=== PATIENT | female | born 1990 | race Two or more races ===

== ENCOUNTER 2024-01-31 23:59 | Inpatient (IN) | payer MEDICAID ==
[~2024-01-31] VITALS: Ht 162.6 cm; Wt 73.0 kg
[2024-02-01 00:52] LABS: BASOPHILS % (AUTO) 1.2 % (0.0-2.0); EOSINOPHILS % (AUTO) 1.6 % (1.0-6.0); HEMATOCRIT 40.9 % (36-46); HEMOGLOBIN 13.4 g/dL (12.0-16.0); LYMPHOCYTES # (AUTO) 2.6 K/uL (1.0-4.8); LYMPHOCYTES % (AUTO) 48.1 % (22.0-44.0); MEAN CORPUSCULAR HGB CONC 32.8 G/dL (31.0-37.0); MEAN CORPUSCULAR VOLUME 92 fL (80-100); MONOCYTES # (AUTO) 0.5 K/uL (0.1-1.0); MONOCYTES % (AUTO) 8.3 % (2.0-9.0); NEUTROPHILS # (AUTO) 2.2 K/uL (1.8-7.7); NEUTROPHILS % (AUTO) 40.8 % (40.0-70.0); PLATELET COUNT (AUTO) 357 K/uL (150-450); RED BLOOD CELL COUNT(AUTO) 4.47 MIL/uL (4.00-5.20); RED CELL DISTRIBUTION WIDTH 18.5 % (11.5-14.5); WHITE BLOOD COUNT (AUTO) 5.5 K/uL (4.5-11.0)
[2024-02-01 00:54] LABS: ANION GAP 10 mmol/L (8-16); CALCIUM, TOTAL 8.4 mg/dL (8.8-10.5); CARBON DIOXIDE 28 mmol/L (22-29); CHLORIDE 105 mmol/L (98-107); CREATININE 0.76 mg/dL (0.60-1.30); GLOMERULAR FILTR. RATE CALC > 60 mL/min (>60); GLUCOSE,RANDOM 95 mg/dL (70-110); POTASSIUM 3.9 mmol/L (3.5-5.1); SODIUM SERUM 143 mmol/L (136-145); UREA NITROGEN, BLOOD 13 mg/dL (7-18)
[2024-02-01 00:55] LABS: ALCOHOL, BLOOD (SERUM) 267 mg/dL (0-10)
[2024-02-01 01:21] LABS: PH,URINE DRUG SCREEN 5.5 (5.0-8.0)
[2024-02-01 01:41] LABS: METHADONE SCREEN, URINE NEGATIVE (NEGATIVE)
[2024-02-01 01:57] LABS: ALCOHOL, URINE DRUG SCREEN POSITIVE (NEGATIVE); AMPHET/METH SCREEN,URINE POSITIVE (NEGATIVE); BARBITURATE SCREEN, URINE NEGATIVE (NEGATIVE); BENZODIAZEPINES SCREEN,URINE NEGATIVE (NEGATIVE); CANNABINOID SCREEN,URINE POSITIVE (NEGATIVE); COCAINE SCREEN,URINE NEGATIVE (NEGATIVE); OPIATE SCREEN,URINE NEGATIVE (NEGATIVE); PHENCYCLIDINE SCREEN,URINE NEGATIVE (NEGATIVE)
[2024-02-01 04:36] LABS: COVID AG,FIA SOURCE NASAL SWAB
[2024-02-01 04:39] LABS: SARS-COV2 (COVID) ANTIGEN,FIA Negative (Negative)
[2024-02-01] MEDS ORDERED: ZOLPIDEM TARTRATE 10 MG TABLET PO PRN (09:45)
[2024-02-01 12:10] LABS: APPEARANCE,URINE TURBID (CLEAR); BILIRUBIN,URINE NEGATIVE (NEGATIVE); COLOR,URINE YELLOW (YELLOW); GLUCOSE, URINE (UA) NEGATIVE (NEGATIVE); KETONES,URINE NEGATIVE (NEGATIVE); LEUKOCYTE ESTERASE ,URINE NEGATIVE (NEGATIVE); NITRATE,URINE NEGATIVE (NEGATIVE); OCCULT BLOOD,URINE NEGATIVE (NEGATIVE); PH,URINE 5.5 (5.0-8.0); PROTEIN,URINE NEGATIVE (NEGATIVE); SPECIFIC GRAVITIY, URINE 1.012 (1.003-1.030); UROBILINOGEN,URINE <=1.0 mg/dL (<=1.0)
[2024-02-01] MEDS: LORazepam 2 MG TABLET PO PRN (16:15)
[2024-02-01] MEDS: QUEtiapine FUMARATE 100 MG TABLET PO PRN (16:15)
[2024-02-02] MEDS ORDERED: MIRT-92 PO (09:04)
[2024-02-02] MEDS ORDERED: LISD70CA PO (09:04)
[2024-02-02 10:22] VITALS: BP 126/80; PULSE 118; RESP 16; TEMP 96.6; O2SAT 98
[2024-02-02] MEDS: MIRTAZAPINE 30 MG TABLET PO SCH (12:29)
[2024-02-02] MEDS ORDERED: ALBUTEROL SULFATE HFA 90 MCG/PUFF 8 GM INHALER IH PRN (14:00)
[2024-02-02] MEDS ORDERED: PETROLATUM,WHITE 28 GM JELLY TP PRN (14:00)
[2024-02-02] MEDS ORDERED: ONDANSETRON HCL 4 MG TABLET PO PRN (14:00)
[2024-02-02] MEDS ORDERED: ACETAMINOPHEN 325 MG TABLET PO PRN (14:00)
[2024-02-02] MEDS ORDERED: LOPERAMIDE HCL 2 MG CAPSULE PO PRN (14:00)
[2024-02-02] MEDS ORDERED: IBUPROFEN 400 MG TABLET PO PRN (14:00)
[2024-02-02] MEDS ORDERED: MAG HYDROX/ALUMINUM HYD/SIMETH ES 30 ML SUSPENSION UDCUP PO PRN (14:00)
[2024-02-02] MEDS ORDERED: GuaiFENesin/D-METHORPHAN [SUGAR-FREE] 200-20MG/10 ML SYRUP UDCUP PO PRN (14:00)
[2024-02-02] MEDS ORDERED: DOCUSATE SODIUM 100 MG CAPSULE PO PRN (14:00)
[2024-02-02] MEDS ORDERED: MAGNESIUM HYDROXIDE SUSPENSION 30 ML UDCUP PO PRN (14:00)
[2024-02-02] MEDS ORDERED: CloNIDine HCL 0.1 MG TABLET PO PRN (14:00)
[2024-02-02 20:41] VITALS: PULSE 112
[2024-02-02 20:49] VITALS: PULSE 92
[2024-02-02 21:03] VITALS: BP 111/72; PULSE 92; RESP 16; TEMP 97.8; O2SAT 99
[2024-02-02] MEDS: NICOTINE 14 MG/24 HOUR PATCH TD PRN (21:26)
[2024-02-03 08:15] VITALS: BP 124/77; PULSE 91; RESP 17; TEMP 97.5; O2SAT 100
[2024-02-03 09:05] LABS: HEMOGLOBIN A1C 5.1 % (3.8-5.6)
[2024-02-03 09:19] LABS: THYROID STIMULATING HORMONE 4.49 uIU/mL (0.36-3.74)
[2024-02-03] MEDS ORDERED: ONDANSETRON HCL 4 MG TABLET PO PRN (10:00)
[2024-02-03] MEDS ORDERED: ACETAMINOPHEN 325 MG TABLET PO PRN (10:00)
[2024-02-03] MEDS ORDERED: CloNIDine HCL 0.1 MG TABLET PO PRN (10:00)
[2024-02-03] MEDS ORDERED: MAGNESIUM HYDROXIDE SUSPENSION 30 ML UDCUP PO PRN (10:00)
[2024-02-03] MEDS ORDERED: DOCUSATE SODIUM 100 MG CAPSULE PO PRN (10:00)
[2024-02-03] MEDS ORDERED: ALBUTEROL SULFATE HFA 90 MCG/PUFF 8 GM INHALER IH PRN (10:00)
[2024-02-03] MEDS ORDERED: IBUPROFEN 400 MG TABLET PO PRN (10:00)
[2024-02-03] MEDS ORDERED: PETROLATUM,WHITE 28 GM JELLY TP PRN (10:00)
[2024-02-03] MEDS ORDERED: LOPERAMIDE HCL 2 MG CAPSULE PO PRN (10:00)
[2024-02-03] MEDS ORDERED: MAG HYDROX/ALUMINUM HYD/SIMETH ES 30 ML SUSPENSION UDCUP PO PRN (10:00)
[2024-02-03] MEDS ORDERED: GuaiFENesin/D-METHORPHAN [SUGAR-FREE] 200-20MG/10 ML SYRUP UDCUP PO PRN (10:00)
[2024-02-03] MEDS: NICOTINE 14 MG/24 HOUR PATCH TD PRN (20:13)
[2024-02-03 20:47] VITALS: BP 112/74; PULSE 98; RESP 16; TEMP 97.9; O2SAT 99
[2024-02-04 02:07] LABS: HEPATITIS C AB (EIA) Non Reactive (Non Reactive)
[2024-02-04 08:09] VITALS: BP 108/65; PULSE 91; RESP 16; TEMP 97.9; O2SAT 99
[2024-02-04 08:33] LABS: HEMOGLOBIN A1C 5.1 % (3.8-5.6)
[2024-02-04 08:40] LABS: CHOL/HDL RATIO 2.1 (3.9-5.7); FREE T4 (FREE THYROXINE) 0.71 ng/dL (0.76-1.46); THYROID STIMULATING HORMONE 1.69 uIU/mL (0.36-3.74)
== END 2024-02-04 09:40 | disposition left against medical advice (07) | DRG 751 ==
LOC: EMS 23:59 → B2X 02-02 08:19
PROVIDERS: ADMIT Psychiatry & Neurology Psychiatry; ATTEND Psychiatry & Neurology Psychiatry
PROC: GZHZZZZ Group Psychotherapy (ICD-10-PCS; principal; 2024-02-02)
PROC: GZ51ZZZ Individual Psychotherapy, Behavioral (ICD-10-PCS; 2024-02-02)
DX: F33.2 Major depressive disorder, recurrent severe without psychotic features (principal); R45.851 Suicidal ideations; F98.8 Other specified behavioral and emotional disorders with onset usually occurring in childhood and adolescence; Y90.8 Blood alcohol level of 240 mg/100 ml or more; Z20.822 Contact with and (suspected) exposure to COVID-19; Z79.899 Other long term (current) drug therapy; F15.10 Other stimulant abuse, uncomplicated; F10.10 Alcohol abuse, uncomplicated; R00.0 Tachycardia, unspecified; F41.9 Anxiety disorder, unspecified; Z53.29 Procedure and treatment not carried out because of patient's decision for other reasons
CPT/HCPCS: 80048; 80061; 80307; 81003; 83036; 84439; 84443; 84703; 85025; 86803; 87340; 99285; G0480